=== PATIENT | male | born 1995 | race Caucasian/White ===

== ENCOUNTER → 2021-11-19 | Outpatient (CLI) | payer OTHER ==
[~2021-11-19] MED LIST: ALBUTEROL SULFAT8 MG INH; AMOXICILLIN500 MG PO; BROM/PSEUD/DM473 ML PO; BROMFED-DM 480480 ML PO; CEFTIN500 MG PO; DELTASONE10 MG PO; IBUPROFEN100 MG/51 PO; MOTRIN800 MG PO; MUCINEX PO; MULTIPLE VITAMI1 CAP PO; NKHM; OMNICEF300 MG PO; PROAIR HFA0.09 MG/AC INH; QVAR INH; ZANTAC150 MG PO; ZITHROMAX; ZITHROMAX Z PA250 MG PO; ZOFRAN4 MG PO
== END | disposition home or self-care (01) ==
LOC: COVID19 16:15
PROVIDERS: ATTEND Internal Medicine
DX: U07.1 COVID-19 (principal)

== ENCOUNTER 2024-03-03 23:33 | Emergency (ER) | payer BC ==
[~2024-03-03] VITALS: Ht 187.9 cm; Wt 131.5 kg
[2024-03-04 00:27] LABS: BASO # 0.1 10*3/uL (0.0-0.1); BASO % 0.4 % (0.0-1.0); EOS # 0.3 10*3/uL (0.0-0.4); EOS % 2.7 % (1.0-4.0); HEMATOCRIT 46.7 % (42.0-52.0); LYMPH # 3.4 10*3/uL (1.3-4.4); LYMPH % 28.6 % (27.0-41.0); MEAN CELL VOLUME 88.1 fl (80.0-94.0); MEAN CORPUSCULAR HGB 28.9 pg (27.0-31.0); MEAN CORPUSCULAR HGB CONC 32.8 g/dl (33.0-37.0); MEAN PLATELET VOLUME 9.5 fl (9.6-12.3); MONO % 8.3 % (3.0-9.0); NEUT # 7.1 10*3/uL (2.3-7.9); NEUT % 59.7 % (47.0-73.0); PLATELET COUNT AUTOMATED 275 10*3/uL (130-400); RED CELL DISTRI WIDTH 12.4 % (0-14.5); WHITE BLOOD COUNT 11.9 10*3/uL (4.8-10.8)
[2024-03-04 00:40] LABS: ACT PARTIAL THROMBO TIME 29.6 SECONDS (20.0-32.1)
[2024-03-04 00:45] LABS: BILIRUBIN Negative (Negative); BLOOD Negative (Negative); CLARITY Clear (Clear); COLOR Yellow (Yellow); GLUCOSE Negative (Negative); KETONE Negative (Negative); LEUKO ESTERASE Negative (Negative); NITRITE Negative (Negative); PH 6.5 (4.5-8.0)
[2024-03-04 00:51] LABS: WBC 0-2 wbc/hpf (0-5)
[2024-03-04 00:54] LABS: ALKALINE PHOSPHATASE 106 U/L (46-116); BUN 6 mg/dl (9-23); CHLORIDE 104 mmol/L (98-107); CPK 93 U/L (34-171); POTASSIUM 4.1 mmol/L (3.4-5.1); SGPT/ALT 42 U/L (5-49)
[2024-03-04] MEDS ORDERED: SODIUM CHLORIDE 0.9% 100 ML BAG IV ONE (01:50)
[2024-03-04] MEDS ORDERED: IOHEXOL 350 MG/ML 100 ML VIAL IV ONE (01:50)
[2024-03-04] MEDS ORDERED: Metoclopramide Hydrochloride 10 MG/2 ML AMP IV ONE (01:55)
[2024-03-04] MEDS ORDERED: methylPREDNISolone sod succ 125 MG VIAL IV ONE (01:55)
[2024-03-04] MEDS ORDERED: Ketorolac Tromethamine 30 MG/ML VIAL IV ONE (02:00)
[2024-03-04] MEDS ORDERED: SODIUM CHLORIDE 0.9% 1,000 ML IV ONE ×2 (02:10→02:17)
[2024-03-04 03:50] VITALS: BP 112/58
== END 2024-03-04 03:51 | disposition home or self-care (01) ==
LOC: ED 23:33
PROVIDERS: Emergency Medicine; Student in an Organized Health Care Education/Training Program
DX: R07.89 Other chest pain (principal); G43.909 Migraine, unspecified, not intractable, without status migrainosus; R53.1 Weakness; R20.0 Anesthesia of skin; Z88.8 Allergy status to other drugs, medicaments and biological substances; Z98.890 Other specified postprocedural states

== ENCOUNTER → 2024-04-15 | Outpatient (CLI) | payer BC ==
[~2024-04-15] MED LIST changes: +GADOTERATE MEGLUMINE 10 MMOL/20 ML VIAL IV ONE; +GADOTERATE MEGLUMINE 5 MMOL/10 ML VIAL IV ONE
== END | disposition home or self-care (01) ==
LOC: MRI 13:30
PROVIDERS: ATTEND Family Medicine
DX: R51.9 Headache, unspecified (principal); R20.2 Paresthesia of skin

== ENCOUNTER → 2024-11-22 | Outpatient (CLI) | payer BC ==
[~2024-11-22] MED LIST changes: -GADOTERATE MEGLUMINE 10 MMOL/20 ML VIAL IV ONE; -GADOTERATE MEGLUMINE 5 MMOL/10 ML VIAL IV ONE
== END | disposition home or self-care (01) ==
LOC: US 11:00
PROVIDERS: ATTEND Family Medicine
DX: R01.1 Cardiac murmur, unspecified (principal); R20.0 Anesthesia of skin

== ENCOUNTER → 2025-03-17 | Outpatient (CLI) | payer BC | END | disposition home or self-care (01) | LOC: CARD 09:30 | PROVIDERS: ATTEND Family Medicine | DX: R00.2 Palpitations (principal) ==